=== PATIENT | female | born 1980 | race Caucasian/White ===

== ENCOUNTER → 2016-05-09 | Outpatient (CLI) | payer BC ==
[~2016-05-09] MED LIST: ACET-1256 PO; OXYC-57 PO; PRENTAB26 PO
[2016-05-09 15:54] LABS: HEMATOCRIT 34.6 % (37-47)
[2016-05-09 18:14] LABS: GTGD 50 Grams
== END | disposition home or self-care (01) ==
LOC: C.LAB1850 14:17
PROVIDERS: ATTEND Obstetrics & Gynecology
DX: O09.513 Supervision of elderly primigravida, third trimester (principal)

== ENCOUNTER → 2016-05-09 | Outpatient (CLI) | payer BC ==
[2016-05-09 17:35] LABS: URINE APPEARANCE CLEAR (CLEAR); URINE BILIRUBIN NEG (NEG); URINE COLOR YELLOW; URINE EPITHELIAL CELL AUTO >30 /lpf (0-5); URINE NITRITE NEG (NEG); URINE PH 6.5 (4.5-7.5); URINE SPECIFIC GRAVITY 1.003 (1.000-1.030); UROBILINOGEN NEG (NEG)
[2016-05-09 17:39] LABS: MANUAL MICROSCOPIC REQUIRED? NO; REVIEW REQ? NO
== END | disposition home or self-care (01) ==
LOC: C.LABSPEC 16:47
PROVIDERS: ATTEND Obstetrics & Gynecology
DX: O09.513 Supervision of elderly primigravida, third trimester (principal)

== ENCOUNTER 2016-08-01 05:33 | Inpatient (IN) | payer BC ==
[2016-07-31 11:59] LABS: BASO % 0.3 %; BASO ABS # 0.03 K/uL (0-0.2); COMPLETE YES; EOS % 1.1 %; HEMATOCRIT 39.1 % (37-47); IG% 0.2 %; LYMPH % 13.7 %; LYMPH ABS # 1.35 K/uL (1.2-3.4); MEAN CELL VOLUME 89.5 fL (80-100); MEAN CORPUSCULAR HGB CONC 33.5 g/dl (32-36); MONO % 6.3 %; NEUT % 78.4 %; PLATELET COUNT 212 K/uL (130-400); RED BLOOD COUNT 4.37 M/uL (4.2-5.4); WHITE BLOOD COUNT 9.88 K/uL (4.8-10.8)
--- NOTE | 2016-07-31 12:08 | HISTORY & PHYSICAL EXAMINATION ---
DATE OF ADMISSION: 08/01/2016 PREOPERATIVE HISTORY AND PHYSICAL ADMITTING DIAGNOSES: 1. Complicated at 39+ weeks gestational age. 2. Unstageable lie. 3. Advanced maternal age. ADMISSION HISTORY: The patient is a 35-year-old 4, para 0 with an EDC of 04 August by dates and first trimester ultrasound who is admitted for primary section for an unstable lie. The patient was noted to be initially in a breech presentation at approximately 36 weeks' gestational age, this spontaneously converted to what was felt to be a vertex, but on ultrasound, the vertex was actually in the right lower quadrant. On pelvic examination, the fetus was not in the pelvis. The risks and benefits were discussed and the patient has been admitted for the above-listed procedures. The patient otherwise has had an unremarkable course. Her blood type is O positive, antibody negative, rubella immune, hepatitis B negative. She had a positive group B strep urine. She had a negative [id number] for advanced maternal age a negative maternal serum AFP, normal 1 hour Glucola x2. PAST MEDICAL HISTORY: OBSTETRICAL: As above. GYNECOLOGICAL: Habitual Aborter MEDICAL: Reactive airways disease, dysmetabolic syndrome. SURGICAL: Left breast biopsy. ALLERGIES: No known drug allergies. SOCIAL HISTORY: No smoking. FAMILY HISTORY: Noncontributory. REVIEW OF SYSTEMS: As per HPI. PHYSICAL EXAMINATION: GENERAL: Today shows a gravid female in no acute distress. VITAL SIGNS: Her blood pressure 130/80, height of 5 feet 5 inches and weight of 171 pounds. HEENT EXAMINATION: Unremarkable. NECK: Supple. LUNGS: Clear. HEART: With a regular rhythm and rate. ABDOMEN: Gravid with positive heart tones, estimated weight of 8 pounds. PELVIC: Showed the cervix to be long, thick and closed with no presenting part in the pelvis. EXTREMITIES: Medication shows +1 edema. NEUROLOGIC: Grossly intact. IMPRESSION: A 35-year-old 4, para 0, 39+ weeks gestational age, unstable lie for primary section. PLAN: Risks, benefits and alternatives to the surgery have been discussed. The benefits will be delivery of the , the risks are bleeding, infection, inadvertent injury to bowel, bladder, readmission or rehospitalization or reoperation. The patient understands this. Permit has been signed and she wishes to proceed. WILLIS
[2016-08-01] VITALS (11 sets, daily range): BP systolic 106–117; BP diastolic 68–69; PULSE 88–111; TEMP 36.7–36.9; O2SAT 98–99; Ht 152.4 cm; Wt 89.1 kg
[~2016-08-01] VITALS: Ht 152.4 cm; Wt 89.1 kg
[~2016-08-01 05:33] MED LIST changes: -OXYC-57 PO
[2016-08-01] MEDS ORDERED: CITRIC ACID/SODIUM CITRATE 15 ML UDC PO SCH (06:00)
[2016-08-01] MEDS ORDERED: CEFAZOLIN IV 2,000 MG in DEXTROSE 5% 50ML IV SCH (06:00)
[2016-08-01] MEDS ORDERED: LACTATED RINGER'S 1000ML 1,000 ML IV SCH (06:00)
[2016-08-01 06:44] LABS: BASO % 0.2 %; BASO ABS # 0.02 K/uL (0-0.2); COMPLETE YES; EOS % 1.6 %; HEMATOCRIT 38.2 % (37-47); IG% 0.3 %; LYMPH % 17.8 %; LYMPH ABS # 1.53 K/uL (1.2-3.4); MEAN CELL VOLUME 88.6 fL (80-100); MEAN CORPUSCULAR HGB CONC 32.7 g/dl (32-36); MEAN PLATELET VOLUME 11.5 fL (7.4-10.4); MONO % 6.3 %; NEUT % 73.8 %; PLATELET COUNT 206 K/uL (130-400); RED BLOOD COUNT 4.31 M/uL (4.2-5.4)
[2016-08-01] MEDS ORDERED: OXYTOCIN INJ 10 UNITS/ML VIAL ONE (06:53)
[2016-08-01] MEDS ORDERED: ONDANSETRON INJ 2 MG/ML 2 ML VIAL ONE (06:53)
[2016-08-01] MEDS ORDERED: MoRPHine SULFATE PF 1 MG/ML 10 ML AMP/VIAL ONE (06:54)
[2016-08-01] MEDS ORDERED: FENTANYL CITRATE INJ 50 MCG/1 ML 2 ML VIAL ONE (06:54)
--- NOTE | 2016-08-01 07:25 | History & Physical Bridge Note ---
H&P Re-Evaluation Bridge Note: I have examined the patient, reviewed the History & Physical and in the interval since the performance of the History & Physical I have noted the following changes of clinical significance: No changes noted
[2016-08-01] MEDS ORDERED: EpHEDrine SULFATE INJ 50 MG/ML AMP ONE (08:25)
[2016-08-01] MEDS ORDERED: SODIUM CHLORIDE 0.9% 1000ML 1,000 ML IV PRN (08:44)
[2016-08-01] MEDS ORDERED: NALOXONE HCL INJ 0.08 MG in SYRINGE 1.8 ML IV PRN (08:44)
[2016-08-01] MEDS ORDERED: LACTATED RINGER'S 1000ML 500 ML IV PRN (08:44)
[2016-08-01] MEDS ORDERED: HYDROCORTISONE ACETATE 25 MG SUPP PR PRN (08:45)
[2016-08-01] MEDS ORDERED: EpHEDrine SULFATE INJ 50 MG/ML AMP IV PRN (08:45)
[2016-08-01] MEDS ORDERED: MoRPHine SULFATE 2 MG/ML CARP IV PRN (08:45)
[2016-08-01] MEDS ORDERED: PROMETHAZINE HCL INJ 25 MG in SODIUM CHLORIDE 0.9% 50ML 50 ML IV PRN (08:45)
[2016-08-01] MEDS ORDERED: MEPERIDINE HCL 25 MG/ML CARP IV PRN (08:45)
[2016-08-01] MEDS ORDERED: DiphenhydrAMINE HCL 50 MG/ML VIAL IV PRN (08:45)
[2016-08-01] MEDS ORDERED: NO NARCOTICS OR SEDATIVES SCH (08:45)
[2016-08-01] MEDS ORDERED: SUPERCREAM 0.870 % 15GM JAR EXT PRN (08:45)
[2016-08-01] MEDS ORDERED: BENZOCAINE 20% AER SPR 82.5 GM CAN EXT PRN (08:45)
[2016-08-01] MEDS ORDERED: LANOLIN OINT EXT PRN ×2 (08:45)
[2016-08-01] MEDS ORDERED: NALBUPHINE HCL INJ 10 MG/ML AMP IV PRN (08:45)
[2016-08-01] MEDS ORDERED: NALOXONE HCL 0.4 MG/1 ML VIAL/CARP IV PRN (08:45)
[2016-08-01] MEDS ORDERED: ONDANSETRON INJ 2 MG/ML 2 ML VIAL IV PRN (08:45)
[2016-08-01] MEDS ORDERED: MoRPHine SULFATE PF 1 MG/ML 10 ML AMP/VIAL EPI PRN (08:45)
--- NOTE | 2016-08-01 08:45 | [facility] Post Operative Brief Note ---
Immediate Operative Summary Operative Date August 01, 2016. Pre-Operative Diagnosis 1. Term IUP 2. Unstable Lie Post-Operative Diagnosis Same Procedure(s) Performed Primary lower uterine transverse caesarean section for the of a viable female child at 0804. Surgeon Dr. Butcher Principal Consultant Surgeon(s) Dr. Julian Estimated Blood Loss 800cc Findings viable female, Apgars 8/9 weight of 6lbs 11ozs; vtx in RLQ at delivery, NC x1; gasses pending, nml appearing tubes and ovaries bilaterally Fluids (cc crystalloids) 1500 Specimens 1. Placenta: Hold 2. Cord blood obtained 3. Venous and Arterial Cord Gases obtained Drains Randolph to gravity Anesthesia Spinal Complication(s) None Disposition L&D
--- NOTE | 2016-08-01 08:46 | Anesthesiology Progress Note ---
Anesthesia Post Op Note Date & Time August 01, 2016 at 08:45 Notes Mental Status: alert / awake / arousable, participated in evaluation Pt Amnestic to Procedure: No (recall as expected) Nausea / Vomiting: adequately controlled Pain: adequately controlled Airway Patency, RR, SpO2: stable & adequate BP & HR: stable & adequate Hydration State: stable & adequate Neuraxial Anesthesia: was administered, sensory block is resolving Anesthetic Complications: no major complications apparent Pt had C/S for unstable lie under spinal. Her anesthetic course was unremarkable. I asked the pt's nurse to given another 500-1000 mL LR to replace the EBL. Post-op vitals: BP 137/68, HR 69, RR 20, SpO2 98% on RA, T 36.4.
--- NOTE | 2016-08-01 08:56 | OPERATIVE REPORT ---
DATE OF OPERATION: 08/01/2016 PREOPERATIVE DIAGNOSES: 1. Term . 2. Unstable lie. POSTOPERATIVE DIAGNOSES: Same. PROCEDURE PERFORMED: Primary low cervical transverse section. SURGEON: Dr. Butcher. SENIOR LINUX SYSTEMS ENGINEER: Dr. Janine Julian. ANESTHESIA: Spinal. FINDINGS: Viable female infant with Apgars of 8 and 9 and weight of 6 pounds 11 ounces, nuchal cord x1. Arterial and venous cord gases are pending. Several small seedling fibroids noted on the uterus. Normal appearing tubes and ovaries bilaterally. PROCEDURE IN DETAIL: The patient was taken to the operating room, and after spinal anesthesia, was placed in supine position and draped and prepped in the usual fashion. Pfannenstiel type incision was made. Underlying subcutaneous tissue was dissected down to the ventral abdominal fascia which was nicked and opened in a horizontal manner. Preperitoneal fascia was dissected away until the peritoneal cavity was entered and opened in a vertical manner. Bladder blade was placed. The uterus was entered sharply and extended in a semilunar fashion manually. Artificial rupture of membranes for clear fluid. The vertex was in the right lower quadrant, and with fundal pressure, this brought the head into the pelvis. Baby was delivered. Nuchal cord x1 was reduced. The cord was clamped and cut, and the baby was passed off to pediatrics who was in attendance for the delivery. Cord gases, cord blood samples obtained. Placenta was delivered spontaneously and the uterus was exteriorized. The uterine cavity was wiped clean of any residual tissue and/or clot. The uterine incision was then closed with 2 layers of 4-0 Vicryl, the first a running locking stitch, the second an imbricating stitch. Hemostasis was achieved and the uterus was returned to the pelvic cavity. The pericolic gutters were cleared bilaterally of any blood tissue and/or clot. Uterine incision was inspected for hemostasis again, which was present. The sponge and needle count was correct. Rectus muscle was plicated in the midline with a running 2-0 Vicryl suture. The fascia was closed laterally with a running 0 Vicryl suture. The subcutaneous tissue was irrigated with warm saline and the skin incision was closed with a 4-0 Monocryl subcuticular stitch. Sterile dressing was applied and the patient was taken to the recovery room in satisfactory condition. I attest to the content of the Intraoperative Record and any orders documented therein. Any exceptio ns are noted below.
[2016-08-01] MEDS: OXYTOCIN INJ 20 UNITS in LACTATED RINGER'S 1000ML 1,000 ML IV SCH ×2 (09:40→18:21)
[2016-08-01] MEDS: KETOROLAC TROMETHAMINE 30 MG/ML VIAL IV. PRN ×2 (11:13→20:33)
[2016-08-02] VITALS: O2SAT 99
[2016-08-02 01:00] VITALS: O2SAT 97
[2016-08-02 02:00] VITALS: O2SAT 100
[2016-08-02] MEDS ORDERED: DC INTRASPINAL MORPHINE SCH (02:00)
[2016-08-02] MEDS ORDERED: ONDANSETRON INJ 2 MG/ML 2 ML VIAL IV PRN (02:01)
[2016-08-02] MEDS ORDERED: DiphenhydrAMINE HCL 50 MG/ML VIAL IV PRN (02:01)
[2016-08-02] MEDS ORDERED: KETOROLAC TROMETHAMINE 30 MG/ML VIAL IV. PRN (02:01)
[2016-08-02] MEDS ORDERED: OXYCODONE/ACETAMINOPHEN 5-325 TAB PO PRN (02:01)
[2016-08-02 06:29] LABS: HEMATOCRIT 33.8 % (37-47); MEAN CELL VOLUME 88.3 fL (80-100); MEAN CORPUSCULAR HEMOGLOBIN 28.7 pg (25-34); MEAN CORPUSCULAR HGB CONC 32.5 g/dl (32-36); MEAN PLATELET VOLUME 11.2 fL (7.4-10.4); PLATELET COUNT 202 K/uL (130-400); RED BLOOD COUNT 3.83 M/uL (4.2-5.4); WHITE BLOOD COUNT 18.17 K/uL (4.8-10.8)
[2016-08-02 07:08] LABS: BASO % 0.1 %; BASO ABS # 0.02 K/uL (0-0.2); COMPLETE YES; EOS % 0.7 %; IG% 0.3 %; LYMPH % 7.4 %; LYMPH ABS # 1.34 K/uL (1.2-3.4); NEUT % 88.5 %
--- NOTE | 2016-08-02 07:13 | Progress Note ---
Subjective August 02, 2016. Subjective conversation w/ patient, conversation w/ family Voiding: long catheter in place Feeding Type: Breast Feeding Objective Vital Signs Date Time Temp Pulse Resp B/P Pulse Ox O2 Delivery O2 Flow Rate FiO2 08/02/16 02:00 18 100 08/02/16 01:00 16 97 08/02/16 00:00 18 99 08/01/16 23:30 99 Room Air 08/01/16 23:00 18 99 08/01/16 22:00 18 99 08/01/16 21:00 20 99 08/01/16 20:00 20 99 08/01/16 19:30 36.7 111 20 106/69 Room Air 08/01/16 19:00 20 99 08/01/16 18:00 19 98 08/01/16 17:00 20 99 08/01/16 16:00 18 99 08/01/16 15:15 Room Air 08/01/16 15:15 36.9 88 20 117/68 99 Room Air 08/01/16 15:15 20 99 08/01/16 15:15 99 Room Air 08/01/16 15:15 20 99 Physical Exam General Appearance: WELL-APPEARING, NO APPARENT DISTRESS Respiratory/Chest: lungs clear Cardiovascular: regular rate, rhythm Incision Description: Clean, Dry & Intact Extremities: no calf tenderness Laboratory Results Last 24 Hours Test 08/02/16 06:09 White Blood Count 18.17 K/uL Red Blood Count 3.83 M/uL Hemoglobin 11.0 g/dL Hematocrit 33.8 % Mean Corpuscular Volume 88.3 fL Mean Corpuscular Hemoglobin 28.7 pg Mean Corpuscular Hemoglobin Concent 32.5 g/dl Platelet Count 202 K/uL Mean Platelet Volume 11.2 fL Neutrophils (%) (Auto) 88.5 % Lymphocytes (%) (Auto) 7.4 % Monocytes (%) (Auto) 3.0 % Eosinophils (%) (Auto) 0.7 % Basophils (%) (Auto) 0.1 % Neutrophils # (Auto) 16.08 K/uL Lymphocytes # (Auto) 1.34 K/uL Monocytes # (Auto) 0.55 K/uL Eosinophils # (Auto) 0.13 K/uL Basophils # (Auto) 0.02 K/uL RDW Standard Deviation 43.1 fL RDW Coefficient of Variation 13.4 % Immature Granulocyte % (Auto) 0.3 % Immature Granulocyte # (Auto) 0.05 K/uL Red Blood Cell Morphology Unremarkable Assessment and Plan Problem List Medical Problems: (1) Influenza B Status: Acute (2) Status: Acute Post-Op Day#: 1 Continue Routine Care: - discussed surgery and finding - begin ambulation - routine care - doing well
[2016-08-02 08:00] VITALS: BP 115/74; PULSE 98; TEMP 36.6
[2016-08-02] MEDS: FERROUS SULFATE 325 MG TAB PO SCH (08:07)
[2016-08-02] MEDS: PRENATAL VITAMIN TAB PO SCH (08:07)
[2016-08-02] MEDS: IBUPROFEN 600 MG TAB PO PRN ×4 (08:08→23:32)
[2016-08-02] MEDS: OXYCODONE/ACETAMINOPHEN 5-325 TAB PO PRN ×3 (08:08→19:17)
[2016-08-02 16:45] VITALS: BP 127/74; PULSE 95; TEMP 36.9; O2SAT 98
[2016-08-02] MEDS: MAGNESIUM HYDROXIDE SUSP 30 ML UDC PO SCH (22:30)
[2016-08-02] MEDS: SENNA 8.6 MG TAB PO SCH (22:31)
[2016-08-02 23:40] VITALS: BP 120/79; PULSE 70; TEMP 36.4; O2SAT 98
[2016-08-03 06:56] LABS: HEMATOCRIT 30.4 % (37-47)
[2016-08-03 07:05] VITALS: BP 126/82; PULSE 79; TEMP 36.5; O2SAT 98
[2016-08-03] MEDS: PRENATAL VITAMIN TAB PO SCH (07:44)
[2016-08-03] MEDS: FERROUS SULFATE 325 MG TAB PO SCH (07:44)
[2016-08-03] MEDS: IBUPROFEN 600 MG TAB PO PRN ×3 (07:50→15:56)
--- NOTE | 2016-08-03 08:36 | Progress Note ---
Subjective August 03, 2016. Subjective conversation w/ patient, physical exam Ambulation: ambulating normally Voiding: no voiding problems, long catheter in place Passing Gas: Yes Diet Tolerance: Regular Diet Lochia: Moderate Feeding Type: Breast Feeding Review of Systems Constitutional: No problem reported Respiratory: No problem reported Cardiac: No problem reported Breast: No problem reported Abdomen: No problem reported Female : No problem reported Objective Vital Signs Date Time Temp Pulse Resp B/P Pulse Ox O2 Delivery O2 Flow Rate FiO2 08/03/16 07:05 36.5 79 18 126/82 98 Room Air 08/02/16 23:40 36.4 70 20 120/79 98 Room Air 08/02/16 23:40 98 08/02/16 16:45 98 Room Air 08/02/16 16:45 36.9 95 18 127/74 98 Room Air Physical Exam General Appearance: WELL-APPEARING, NO APPARENT DISTRESS Respiratory/Chest: no respiratory distress Cardiovascular: regular rate, rhythm Abdomen: non tender, soft Fundus: Firm Incision Description: Clean, Dry & Intact Extremities: normal inspection Laboratory Results Last 24 Hours Test 08/03/16 06:16 Hemoglobin 10.1 g/dL Hematocrit 30.4 % Assessment and Plan Problem List Medical Problems: (1) Influenza B Status: Acute (2) Status: Acute Post-Op Day#: 2 Continue Routine Care: POD#2 doing well. Continue ambulating, PO fluids. Anticipate discharge home tomorrow.
[2016-08-03 15:30] VITALS: BP 115/75; PULSE 89; TEMP 36.6
[2016-08-03] MEDS ORDERED: NURSING VERBAL MED ORDER ONE (18:00)
[2016-08-03] MEDS: ACETAMINOPHEN 325 MG TAB PO PRN (18:11)
[2016-08-04] VITALS: BP 110/72; PULSE 87; TEMP 36.5
[2016-08-04] MEDS: SENNA 8.6 MG TAB PO SCH (01:29)
[2016-08-04] MEDS: MAGNESIUM HYDROXIDE SUSP 30 ML UDC PO SCH (01:30)
[2016-08-04 06:55] VITALS: BP 131/85; PULSE 83; TEMP 36.7; O2SAT 98
[2016-08-04] MEDS ORDERED: OXYC-57 PO (07:29)
--- NOTE | 2016-08-04 07:29 | Progress Note ---
Subjective August 04, 2016. Subjective conversation w/ patient, physical exam, chart review Ambulation: ambulating normally Voiding: no voiding problems Passing Gas: Yes Diet Tolerance: Regular Diet Lochia: Moderate Review of Systems Constitutional: No chills, No fever Respiratory: No cough Cardiac: No chest pain Abdomen: No nausea, No vomiting Objective Vital Signs Date Time Temp Pulse Resp B/P Pulse Ox O2 Delivery O2 Flow Rate FiO2 08/04/16 00:00 36.5 87 18 110/72 Room Air 08/04/16 00:00 Room Air 08/03/16 15:30 36.6 89 20 115/75 Physical Exam General Appearance: WELL-APPEARING, NO APPARENT DISTRESS Respiratory/Chest: no respiratory distress, no accessory muscle use Cardiovascular: no edema Abdomen: non tender, soft Fundus: Firm Incision Description: Clean, Dry & Intact Extremities: no calf tenderness Assessment and Plan Problem List Medical Problems: (1) Influenza B Status: Acute (2) Status: Acute Post-Op Day#: 3 Continue Routine Care: POD#3 , desires d/c home today. INstructions reviewed.
--- NOTE | 2016-08-04 07:30 | Discharge Instructions ---
Discharge Instructions Date of Service August 04, 2016. Admission Reason for Admission: Breech Presentation Discharge Discharge Diagnosis / Problem: delivery Discharge Goals Goal(s): Routine recovery after Activity Recommendations Activity Limitations: per Instructions/Follow-up section . Instructions / Follow-Up Instructions / Follow-Up ACTIVITY RECOMMENDATIONS: * Gradual return to full activity over the next 2-3 weeks. * No lifting - nothing heavier than baby over the next 2-3 weeks. * Do not engage in vigorous exercise, sexual activity or sports until cleared by your physician. * Do not drive or operate any motorized equipment until cleared by your physician. * You may shower/bathe daily. MEDICATIONS: For discomfort or pain, you may use Acetaminophen (Tylenol), Ibuprofen (Advil), or Naproxen (Aleve) following the package directions. For constipation you may use Colace following the package directions. BREAST CARE: If you are not breast feeding: * Wear a supportive bra 24 hours a day for one to two weeks. * Avoid stimulating your breasts and nipples as much as possible during the first few weeks after delivery. * When taking a shower, have the warm water hit your back, not breasts. * When your breasts feel full, apply ice packs. Usually three to four times a day helps ease the discomfort. * Take a mild pain medication (Tylenol / Motrin) when you are uncomfortable. If breast feeding: * Use breast milk to lubricate nipples. Lansinoh cream may be used for sore nipples. You do not need to remove cream prior to breast feeding. If using a different brand of cream, check the label for directions regarding removal of cream prior to nursing. * Wear a supportive bra. * If having problems with breasts or breast feeding, call a bmw sales consultant or your health care provider. SPECIAL CARE INSTRUCTIONS: When you are discharged from the hospital, it is important for you to follow the instructions listed below: * During the first week at home, you should be able to care for yourself and your baby. In addition, the usual light household activities are encouraged. * Limit your activities to the way you feel. Do not try to clean the house or move furniture. Be sensible. * If you actively engage in sports and have done so up until the time of your delivery, you may resume these activities as soon as you feel able. This may take up to one month or even longer. Use good judgment. * Continue to take your vitamins for at least six weeks after the of your baby. * Your diet need not be limited unless you were on a special diet before your delivery. Breast-feeding mothers need around 2500 calories per day and at least 64-80 ounces of fluid per day (8 to 10 glasses). * You should eat foods from the four major food groups. Crash diets or fad diets are to be avoided. Eating lean meats, fresh fruits and vegetables, low-fat dairy products, high fiber foods and a regular exercise program, will help you get back to your pre- weight without putting your health at risk. * Constipation is sometimes a problem after delivery. Take a mild laxative as needed. If breast feeding, Milk of Magnesia is acceptable to use. You may use a suppository or Fleets enema. * A daily shower or tub bath is suggested. Wash incision daily with warm soapy water and pat dry. It doesn't need to be covered unless drainage is present. * A bloody vaginal discharge will usually continue until around four weeks . A small amount of bleeding may continue for as long as six weeks. Vaginal discharge changes from the bright red bleeding after delivery to pink then brownish and finally yellowish-pink before becoming white and disappearing. * Bleeding may increase with activity. Your first period may come in 4-8 weeks. If you are breast feeding, your period may be delayed even longer. * [place] (sex) can begin whenever both you and your partner feel comfortable and do not have any form of genital infection. It is recommended that you wait at least six weeks for internal and external healing to occur. If you have questions, please talk to your health care practitioner. A condom should be used to prevent infection and . * Foreplay, gentle intercourse and lubrication is very important the first several times to prevent pain. A water-based lubricant such as K-Y jelly or Astroglide may be used. * If you have RH negative blood and your baby is RH positive, you will receive RHOGAM by injection prior to discharge. The nurse will give you a card to keep with you that has the date and place that you received RHOGAM after delivery. * During your care, you had a Rubella screen done to check for the presence of rubella antibodies in your blood. If your test was negative, you will receive a Rubella vaccine prior to discharge. This vaccine may cause a fever, soreness at the injection site and flu-like symptoms. If these symptoms persist, notify your health care practitioner. is not advised for one month after a Rubella vaccine. * Verbalizes understanding of car seat law as reviewed with patient nursing. * Car Seat hand-out given and reviewed with patient by nursing. * Shaken baby information reviewed with patient by nursing. Call you doctor if: * Heavy bleeding (saturating several pads an hour) or passing clots the size of your fist. * A fever >101 degrees F (38.3 degrees C) on two occasions four hours apart and /or chills. * Unusual pain in the pelvic or vaginal areas. * Call the doctor for any increased redness, drainage or swelling around the incision and any pain unrelieved by prescribed pain medication. * "Baby Blues" lasting longer than two weeks. If you have any questions or concerns, call your health care practitioner at . FOLLOW UP VISIT: * Please call the office at to schedule a 6 week examination. It is important you keep this appointment. It is important for you to make arrangements for either yearly or twice yearly check-ups thereafter. Current Hospital Diet Patient's current hospital diet: Regular OB Diet Discharge Diet Recommended Diet: Regular Diet Procedures Procedures Performed: Primary lower uterine transverse caesarean section for the of a viable female child at 0804. Pending Studies Studies pending at discharge: no Medical Emergencies . Who to Call and When: Medical Emergencies: If at any time you feel your situation is an emergency, please call [phone] immediately. . Non-Emergent Contact Non-Emergency issues call your: Primary Care Provider . . "Provider Documentation" section prepared by Deann Hanna. . VTE Core Measure Inpt VTE Proph given/why not?: Treatment not indicated [place] Drug Monitoring Program Search Results: patient reviewed within database, no issues identified
[2016-08-04] MEDS: ACETAMINOPHEN 325 MG TAB PO PRN (08:06)
[2016-08-04] MEDS: IBUPROFEN 600 MG TAB PO PRN (08:06)
[2016-08-04] MEDS: FERROUS SULFATE 325 MG TAB PO SCH (08:06)
[2016-08-04] MEDS: PRENATAL VITAMIN TAB PO SCH (08:06)
[2016-08-04 13:00] VITALS: BP_DIAS 85; PULSE 83; TEMP 36.7
--- NOTE | 2016-08-04 13:06 | DISCHARGE SUMMARY ---
ADMITTING DIAGNOSES: 1. Complicated at 39+ weeks' gestational age. 2. Unstable lie. 3. Advanced maternal age. DISCHARGE DIAGNOSES: Same. PROCEDURES PERFORMED: Primary low cervical transverse section. DISCHARGE MEDICATIONS: Percocet 5/325 1-2 p.o. q. 4-6 hours p.r.n. pain. ADMISSION HISTORY: The patient is a 35-year-old 4, para 0 with an EDC of 04 August by dates and first trimester ultrasound who is admitted for a primary section for an unstable lie. The patient was initially noted to be in a breech presentation at approximately 36 weeks' gestational age, this spontaneously converted to what was felt to be a vertex, on ultrasound, the vertex was actually in the right lower quadrant. On pelvic examination, the fetus was not in the pelvis. The risks and benefits were discussed and the patient has been admitted for the above-listed procedures. The patient otherwise had an unremarkable course. Her blood type is O positive, antibody negative, rubella immune, hepatitis B negative. She had a positive group B strep in her urine. She had a negative [id number] for advanced maternal age, a negative maternal serum AFP, and normal 1-hour Glucola x2. PAST MEDICAL HISTORY: OBSTETRICAL: As above. 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 MEDICAL: 1. Reactive airways disease. 2. Dysmetabolic syndrome. SURGICAL: Left breast biopsy. ALLERGIES: No known drug allergies. SOCIAL HISTORY: No smoking. FAMILY HISTORY: Noncontributory. REVIEW OF SYSTEMS: As per HPI. PHYSICAL EXAMINATION: GENERAL: Showed a gravid female in no acute distress. VITAL SIGNS: Blood pressure 130/80, height of 5 feet 5 inches, and a weight 171 pounds. HEENT: Unremarkable. NECK: Supple. LUNGS: Clear. HEART: With a regular rhythm and rate. ABDOMEN: Gravid, positive heart tones, estimated weight of 8 pounds. PELVIC: Showed the cervix to be long, thick and closed with no presenting part in the pelvis. EXTREMITIES: Showed +1 pitting edema. NEUROLOGIC: Grossly intact. ADMISSION LABORATORY VALUES: Showed an H and H of 12.5 and 38.2. HOSPITAL COURSE: On day of admission, the patient was taken to the operating room where she underwent the above-listed procedures. Operative findings showed a viable female with Apgars of 8 and 9 and weight of 6 pounds 11 ounces, nuchal cord x1. Several small seedling fibroids were noted on the uterus, normal-appearing tubes and ovaries bilaterally. Postoperatively, the patient did well. Randolph catheter was removed on the first postoperative day. H and H came back stable at 11.0 and 33.8. By the 3rd postoperative day, the patient was ambulating without difficulty and tolerating a regular diet. She was discharged home with the routine discharge instructions and the prescriptions for the medications as listed above. She will follow up in the office in 2 weeks' time for a postoperative check but as always, she has been instructed to call with any questions, problems or difficulties.
== END 2016-08-04 13:25 | disposition home or self-care (01) | DRG 765 ==
LOC: C.LD 05:33 → EDSTATUS 07:30 → C.OBG 15:15
PROVIDERS: ADMIT Obstetrics & Gynecology; ATTEND Obstetrics & Gynecology
PROC: 10D00Z1 Extraction of Products of Conception, Low, Open Approach (ICD-10-PCS; principal; 2016-08-01 07:30)
DX: O32.0XX0 Maternal care for unstable lie, not applicable or unspecified (principal); O26.23 Pregnancy care for patient with recurrent pregnancy loss, third trimester; O69.81X0 Labor and delivery complicated by cord around neck, without compression, not applicable or unspecified; O99.52 Diseases of the respiratory system complicating childbirth; J45.909 Unspecified asthma, uncomplicated; O99.284 Endocrine, nutritional and metabolic diseases complicating childbirth; E88.81 Metabolic syndrome and other insulin resistance; O34.13 Maternal care for benign tumor of corpus uteri, third trimester; D25.9 Leiomyoma of uterus, unspecified; Z37.0 Single live birth; Z3A.39 39 weeks gestation of pregnancy

== ENCOUNTER 2020-01-31 05:37 | Inpatient (IN) ==
--- NOTE | 2020-01-30 18:50 | History & Physical Report ---
Date of Service January 30, 2020 Assessment & Plan (1) Supervision of elderly multigravida: (2) Previous delivery affecting : Plan for repeat section, tubal sterilization with Filshie clips. Patient has been counseled in office, reviewed consent in detail. History of Present Illness Chief Complaint: repeat Primary Care Provider: Ellen Bryant MD 39yo @ 39 06/21. History of section, desires repeat with tubal sterilization. complications/plans: AMA >40 Anatomy Scan @ 20 weeks Echo ~done at [facility] [place] 09/28/2019, recommended repeat in 4wks for ? VSD - f/u echo nl, no further f/u Growth scan @ 32 weeks Weekly NST's @ 36 weeks Twice weekly NST's @ 38 weeks Weekly NATALIE's @ 38 weeks Deliver by 41 weeks Fibroid- growth US monthly starting @ 28 wks fibroid not seen on 28 week us, likely a uterine contraction Previous c/s--desires repeat C/S WITH TUBAL SCHEDULED FOR 01/[address] DUDLEY Allergies Allergy/AdvReac Type Severity Reaction Status Date / Time No Known Drug Allergies Allergy Verified 01/27/20 10:31 Home Medications Home Medications Medication Instructions Recorded Confirmed Type prenat.vits,radha,ntw-tutt-bkegy 1 tab PO DAILY 06/21/19 01/27/20 History Patient History Medical History Acid reflux induced; Tums PRN Asthma "cold induced" - rare use of PRN inh History of TMJ disorder Surgical History History of section History of D&C History of lumpectomy of left breast History of tonsillectomy and adenoidectomy History of wisdom tooth extraction Status post fine needle aspiration left Family History Grandmother (Paternal) Myocardial infarction Breast cancer Grandfather (Maternal) Coronary heart disease Father Cerebral infarction due to embolism Sarcoma of soft tissue Dyslipidemia Hypertension Mother Parkinsons disease Grandfather (Paternal) Heart disease Denies family history of Ovarian cancer Colorectal cancer Social History (Reviewed 11/15/20 @ 18:48 by Marichuy Dudley, JOSEPHINE Smoking Status: Never smoker Second Hand Exposure: No; Hx Alcohol Use: No Hx Substance Use: No Preferred Language: Chinese Communication Ability: Effective Commissioner Of Internal Revenue Required: No Beliefs That Will Affect Care: None marital status: marital status details: Flako Fajardo (45) [phone] Current Living Situation: Spouse and Family Current Living Situation Comment: lives with spouse, daughter, cats-spouse changing litter current occupational status: employed current occupation: [employer] Feels Safe at Home: Yes Assistive Devices: Contacts and Glasses Review of Systems All systems reviewed & are unremarkable except as noted in HPI & below Physical Exam Constitutional: WD/WN, vitals as above Respiratory: normal respiratory effort, lungs clear to auscultation no respiratory distress Cardiovascular: Rate/Rhythm: regular rate and regular rhythm Gastrointestinal (Abdomen): Inspection/Auscultation: abdomen normal to inspection Percussion/Palpation: abdomen soft; abdomen nontender Gravid. No s/s chorio or abruption. Skin: no rashes, warm and dry Psychiatric: A+Ox3, euthymic affect Coding Level of Care Code None Diagnoses Supervision of elderly multigravida O09.529 Previous delivery affecting O34.219
[2020-01-31] MEDS ORDERED: ceFAZolin 2,000 MG in SYRINGE 0 ML IV SCH (06:00)
[2020-01-31] MEDS ORDERED: CITRIC ACID/SODIUM CITRATE 15 ML UDC PO SCH (06:00)
[2020-01-31] MEDS ORDERED: LACTATED RINGER'S 1,000 ML IV SCH ×2 (06:00→10:40)
[2020-01-31 06:22] LABS: Basophils # (auto) 0.02 K/uL (0-0.2); Basophils % (auto) 0.2 %; Hematocrit (blood only) 39.4 % (37-47); Hemoglobin 13.2 g/dL (12.0-16.0); Immature Granulocytes # (auto) 0.03 K/uL (0.00-0.02); Immature Granulocytes % (auto) 0.3 %; Lymphocytes % (auto) 18.2 %; Mean Corpuscular Hemoglobin 29.5 pg (25-34); Mean Corpuscular Hgb Conc 33.5 g/dL (32-36); Mean Corpuscular Volume 88.1 fL (80-100); Mean Platelet Volume 11.7 fL (7.4-10.4); Monocytes # (auto) 0.79 K/uL (0.11-0.59); Neutrophils # (auto) 7.04 K/uL (1.4-6.5); Neutrophils % (auto) 71.3 %; Platelet Count 216 K/uL (130-400); RDW Coefficient of Variation 14.1 % (11.5-14.5); RDW Standard Deviation 45.6 fL (36.4-46.3); Red Blood Count 4.47 M/uL (4.2-5.4); White Blood Count 9.88 K/uL (4.8-10.8)
--- NOTE | 2020-01-31 07:16 | History & Physical Bridge Note ---
Date of Service January 31, 2020 History & Physical Bridge Note I have examined the patient, reviewed the History & Physical and in the interval since the performance of the History & Physical I have noted the following changes of clinical significance: no changes noted
[2020-01-31] MEDS ORDERED: MoRPHine SULFATE PF 1 MG/ML 10 ML AMP/VIAL ONE (07:20)
--- NOTE | 2020-01-31 07:23 | Anesthesiology Consultation ---
Date of Service January 31, 2020 Assessment & Plan (1) Encounter for pre-operative examination: Chart Review Chart Review: Acceptable Risk for Surgery History Surgery Operation Date: 01/31/20 07:30 Proposed Procedures p Section in LD - Marichuy Dudley DO s Post Tubal Ligation Labor & Deliv - Marichuy Dudley DO Height/Weight Height: 5 ft Weight: 95.254 kg Allergies Allergy/AdvReac Type Severity Reaction Status Date / Time No Known Drug Allergies Allergy Verified 01/27/20 10:31 Medications Home Medications Medication Instructions Recorded Confirmed Last Taken prenat.vits,radha,qeo-odvz-jqlhb 1 tab PO DAILY 06/21/19 01/27/20 Unknown NPO Date Last Intake of Fluids: 01/30/20 Time Last Intake of Fluids: 22:30 Date Last Intake of Solids: 01/30/20 Time Last Intake of Solids: 21:30 Past Medical History Medical History Acid reflux induced; Tums PRN Asthma "cold induced" - rare use of PRN inh History of TMJ disorder Past Family History Family History Grandmother (Paternal) Myocardial infarction Breast cancer Grandfather (Maternal) Coronary heart disease Father Cerebral infarction due to embolism Sarcoma of soft tissue Dyslipidemia Hypertension Mother Parkinsons disease Grandfather (Paternal) Heart disease Denies family history of Ovarian cancer Colorectal cancer Past Surgical History Surgical History History of section History of D&C History of lumpectomy of left breast History of tonsillectomy and adenoidectomy History of wisdom tooth extraction Status post fine needle aspiration left Social History Smoking Status: Never smoker Do You Dip or Chew Tobacco: No Hx Alcohol Use: No Hx Substance Use: No substance use type: does not use Physical Exam Vital Signs Last Vital Signs Temp 36.8 C 01/31/20 06:59 Pulse 84 01/31/20 06:59 Resp 18 01/31/20 06:59 BP 128/94 01/31/20 06:59 Testing Laboratory Results 01/31/20 06:02 Blood Type O Positive 01/31/20 06:02 Antibody Screen NEGATIVE 01/31/20 06:02
[2020-01-31] MEDS ORDERED: PROMETHAZINE HCL 12.5 MG in SODIUM CHLORIDE 0.9% 50 ML IV PRN (07:53)
[2020-01-31] MEDS ORDERED: NALOXONE HCL 1 MG in SODIUM CHLORIDE 0.9% 1000ML 1,000 ML IV PRN (07:53)
[2020-01-31] MEDS ORDERED: MEPERIDINE HCL 25 MG/ML CARP/VIAL IV PRN (07:53)
[2020-01-31] MEDS ORDERED: ePHEDrine sulfate 50 MG/ML AMP IV PRN (07:53)
[2020-01-31] MEDS ORDERED: diphenhydrAMINE 50 MG/ML VIAL IV PRN (07:53)
[2020-01-31] MEDS ORDERED: MoRPHine SULFATE PF 1 MG/ML 10 ML AMP/VIAL INT SPINAL ONE (07:53)
[2020-01-31] MEDS ORDERED: NALOXONE HCL 0.4 MG/1 ML VIAL/CARP IV PRN (07:53)
[2020-01-31] MEDS ORDERED: LACTATED RINGER'S 500 ML IV PRN (07:53)
[2020-01-31] MEDS ORDERED: NALOXONE HCL 0.08 MG in SYRINGE 1.8 ML IV PRN (07:53)
[2020-01-31] MEDS ORDERED: ONDANSETRON INJ 2 MG/ML 2 ML VIAL IV PRN (07:53)
[2020-01-31] MEDS ORDERED: NO NARCOTICS OR SEDATIVES SCH (08:00)
[2020-01-31] MEDS ORDERED: DC INTRASPINAL MORPHINE SCH (08:00)
[2020-01-31] MEDS ORDERED: SODIUM CHLORIDE 0.9% 1000ML 1,000 ML IV SCH (08:00)
[2020-01-31] MEDS ORDERED: SUCCINYLCHOLINE CHLORIDE 20 MG/ML 10 ML VIAL IV ONE (08:01)
[2020-01-31] MEDS ORDERED: PROPOFOL IV EMULSION 10 MG/ML 20 ML VIAL IV ONE (08:02)
[2020-01-31] MEDS ORDERED: METOCLOPRAMIDE HCL INJ 5 MG/ML 2 ML VIAL ONE (08:02)
[2020-01-31] MEDS ORDERED: ONDANSETRON INJ 2 MG/ML 2 ML VIAL ONE (08:02)
[2020-01-31] MEDS ORDERED: OXYTOCIN 10 UNITS/ML VIAL ONE (08:25)
[2020-01-31] MEDS ORDERED: PHENYLEPHRINE 100MCG/ML 5ML SYR ONE (08:25)
[2020-01-31] MEDS ORDERED: ePHEDrine sulfate 50 MG/ML SYR ONE (08:25)
--- NOTE | 2020-01-31 08:56 | Operative Report ---
PG Post Operative Report Pre & Post Diagnosis Operation Date: 01/31/20 07:30 Pre-Op Diagnosis: 1. Elderly multigravida 2. Previous c/section; desires tubal sterilization Post-Op Diagnosis: Same I identified the patient and participated in the time-out.: Yes Procedure Operation Date: 01/31/20 07:30 Actual Procedures Repeat low transverse Section in with the of a live male child at 0803. - Marichuy Dudley, Tubal sterilization with Filshie clips - Marichuy Dudley DO Surgeon Marichuy Dudley, DO Building And Grounds Supervisor Titi Camejo MD Estimated Blood Loss 600 Findings Consistent with Post-Op Diagnosis Viable male Apgars 8/9. Please see nursery records for weight. Specimens Cord blood, gas, placenta. Drains long clear yellow Anesthesia Type Spinal Complications none Disposition Accompanied Patient To Recovery: Yes Disposition: L&D Indications 39yo @ 39 4/7, history of section and desire for repeat, desire for tubal sterilization. Normal appearing tubes, ovaries. 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 Description of Procedure The patient was seen in her labor and delivery room, risks benefits and alternatives to surgery were reviewed. Informed consent obtained. Questions were answered. She was taken to the operating room, spinal anesthesia was administered. She was then prepared and draped in the usual sterile fashion in the supine position with a leftward tilt. Timeout was confirmed. A Pfannenstiel skin incision was made with a scalpel, and carried through to the underlying layer of fascia. Fascia was nicked at midline, and this incision was extended bilaterally. The superior aspect of the fascial incision was grasped with Nanci clamps x2, elevated off the underlying rectus abdominis muscles, and dissected sharply and bluntly. In similar fashion, the inferior aspect of the fascial incision was dissected. The rectus abdominis muscles were , and the peritoneum was entered sharply. This was extended bilaterally. The bladder flap was taken down carefully using Metzenbaum scissors. Using a new scalpel, a low transverse uterine incision was created. Clear amniotic fluid noted. The infant was delivered from a cephalic presentation. The head delivered, followed by shoulders and body. Spontaneous cry on the field. The cord was doubly clamped and cut, and the was handed off to the waiting miter grinder operator. A segment was retained for cord gases. Cord blood was obtained. The placenta was delivered spontaneously intact. The uterus was exteriorized, and cleared of all clots and debris. The hysterotomy incision was reapproximated using 0 Vicryl in a running locked stitch. A second layer of the same suture was used to imbricate the incision. Posterior uterus was evaluated and normal. Tubal sterilization was performed with Filshie clips. Each tube was identified, followed to the fimbria, and the isthmic region was grasped with the Filshie clip, with visualization of the posterior clip through the mesosalpinx. This was performed bilaterally. The uterus was returned to the abdomen, and gutters were cleared of clots and debris. Excellent hemostasis was observed. The fascial incision was reapproximated using 0 Vicryl in a running stitch. The subcutaneous tissue was irrigated, and reapproximated using 2-0 plain gut in a running stitch. The skin was reapproximated using 4-0 Vicryl in a running subcuticular stitch. Steri-Strips and a bandage were applied. The patient tolerated the procedure well, and will be taken to the recovery area in stable and good condition. I attest to the content of the Intraoperative Record and any orders documented therein. Any exceptions are noted below.
[2020-01-31 09:05] LABS: Base Excess Cord Arterial Bld -3.3 mEq/L (-9-1.8); CO2 Cord Arterial Blood 48 mmHg (39.1-73.5); HCO3 Cord Arterial Blood 24 mmol/L (19.7-28.5); PO2 Cord Arterial Blood 20 mmHg (4.1-31.7); pH Cord Arterial Blood 7.31 (7.1-7.38)
[2020-01-31 09:06] LABS: Oxygen Sat Cord Arterial Blood < 60.0 % (<60)
[2020-01-31 09:15] LABS: Base Excess Cord Venous Blood -3.3 mEq/L (-7.7-1.9); Cord Venous Blood HCO3 22 mmol/L (18.4-26.8); Cord Venous Blood PCO2 39 mmHg (30.4-57.2); Cord Venous Blood PO2 29 mmHg (14.1-43.3); Cord Venous Blood pH 7.36 (7.20-7.44)
[2020-01-31] MEDS: KETOROLAC 30 MG/ML VIAL IV PRN ×3 (10:39→22:16)
[2020-01-31] MEDS ORDERED: DIPHTHERIA/TETANUS/PERTUSSIS 0.5 ML SYR/VIAL IM ONE (10:40)
[2020-01-31] MEDS ORDERED: BENZOCAINE 20% AER SPR 82.5 GM CAN EXT PRN (10:40)
[2020-01-31] MEDS ORDERED: SENNA 8.6 MG TAB PO PRN (10:40)
[2020-01-31] MEDS ORDERED: SUPERCREAM 0.870% 15 GM JAR EXT PRN (10:40)
[2020-01-31] MEDS ORDERED: MAGNESIUM HYDROXIDE SUSP 30 ML UDC PO PRN (10:40)
[2020-01-31] MEDS ORDERED: HYDROCORTISONE ACETATE 25 MG SUPP PR PRN (10:40)
[2020-01-31] MEDS: OXYTOCIN 20 UNITS in LACTATED RINGER'S 1,000 ML IV SCH ×2 (11:20→19:29)
[2020-01-31] MEDS: SIMETHICONE 80 MG CHEW PO SCH ×3 (16:41→20:31)
--- NOTE | 2020-01-31 17:17 | Anesthesiology Progress Note ---
Date of Service January 31, 2020 Anesthesia Post Procedure Vital Signs Vital Signs: Temp Pulse Pulse Resp BP BP Pulse Ox 01/31/20 15:20 36.8 C 91 H 16 119/72 98 01/31/20 14:15 18 99 01/31/20 13:10 18 98 01/31/20 12:15 18 97 01/31/20 11:20 36.5 C 94 H 18 133/81 99 01/31/20 11:08 83 100 01/31/20 11:06 92 H 128/82 01/31/20 11:03 92 H 100 01/31/20 10:58 98 H 100 01/31/20 10:56 85 128/80 01/31/20 10:53 93 H 100 01/31/20 10:48 90 100 01/31/20 10:46 89 120/78 01/31/20 10:45 36.5 C 20 01/31/20 10:43 92 H 100 01/31/20 10:38 92 H 100 01/31/20 10:35 85 124/77 01/31/20 10:33 84 100 01/31/20 10:28 82 99 01/31/20 10:26 36.4 C L 82 20 117/71 01/31/20 10:23 84 100 01/31/20 10:18 84 100 01/31/20 10:16 91 H 122/76 01/31/20 10:15 18 01/31/20 10:13 84 100 01/31/20 10:08 88 100 01/31/20 10:06 82 120/67 01/31/20 10:03 95 H 100 01/31/20 09:58 100 H 99 01/31/20 09:56 84 119/66 01/31/20 09:53 81 100 01/31/20 09:48 79 100 01/31/20 09:46 78 129/73 01/31/20 09:45 18 01/31/20 09:43 81 100 01/31/20 09:38 79 100 01/31/20 09:36 85 137/70 01/31/20 09:35 18 01/31/20 09:33 80 100 01/31/20 09:28 93 H 99 01/31/20 09:25 91 H 18 138/68 01/31/20 09:23 101 H 99 01/31/20 09:18 94 H 99 01/31/20 09:16 103 H 129/68 01/31/20 09:15 18 01/31/20 09:13 100 H 99 01/31/20 09:08 101 H 98 01/31/20 09:06 100 H 129/79 01/31/20 09:05 18 01/31/20 09:03 89 97 01/31/20 08:58 89 95 01/31/20 08:56 102 H 132/83 01/31/20 08:55 18 01/31/20 08:53 102 H 98 01/31/20 08:48 101 H 98 01/31/20 08:45 36.5 C 16 01/31/20 08:43 88 123/66 98 01/31/20 06:59 36.8 C 84 18 128/94 01/31/20 05:56 36.4 C L 90 18 125/88 01/31/20 05:49 90 125/88 Pain Intensity Bilateral Abdomen: Pain Intensity: 2 Transfer of Care Handoff Completed per policy Notes Mental Status: alert / awake / arousable Patient Amnestic to Procedure: Yes Nausea / Vomiting: adequately controlled Pain: adequately controlled Airway Patency, RR, SpO2: stable & adequate BP & HR: stable & adequate Hydration State: stable & adequate Anesthetic Complications: no major complications apparent
[2020-01-31] MEDS: DOCUSATE SODIUM 100 MG CAP PO SCH (20:31)
[2020-02-01] MEDS ORDERED: diphenhydrAMINE Capsule 25 MG CAP PO PRN (01:55)
[2020-02-01] MEDS ORDERED: ONDANSETRON INJ 2 MG/ML 2 ML VIAL IV PRN (01:55)
[2020-02-01] MEDS ORDERED: diphenhydrAMINE 50 MG/ML VIAL IV PRN (01:55)
[2020-02-01] MEDS ORDERED: MEPERIDINE HCL 50 MG/ML CARP IV PRN (01:55)
[2020-02-01] MEDS ORDERED: PROMETHAZINE HCL 25 MG in SODIUM CHLORIDE 0.9% 50 ML IV PRN (01:55)
[2020-02-01] MEDS ORDERED: KETOROLAC 30 MG/ML VIAL IV PRN (01:55)
[2020-02-01] MEDS: oxyCODONE/ACETAMINOPHEN 5mg/325mg TAB PO PRN ×2 (01:59→21:08)
--- NOTE | 2020-02-01 04:55 | Obstetrical Progress Note ---
Date of Service <Ramin Monzon MD - Last Filed: 02/01/20 06:21> February 01, 2020 Assessment & Plan <Ramin Monzon MD - Last Filed: 02/01/20 06:21> (1) S/P : Jose is a 39 y/o female who is POD #1 following RCS with BTL at 39-4/7 WGA. - Feels well today. Eating well, voiding well, ambulating well. - Pain well controlled with ibuprofen and Percocet PRN - Routine post-operative care -- OOB and ambulation as tolerated - Anticipate d/c tomorrow pending peds - After discharge will have [address] Dudley. Day #:: 1 Subjective <Ramin Monzon MD - Last Filed: 02/01/20 06:21> Jose is a 39 y/o female who is POD #1 following RCS with BTL at 39-4/7 WGA. She reports feeling well overall this morning. Endorses minimal abdominal cramping with pain well managed on analgesics. Voiding without difficulty. Tolerating meals overnight and able to ambulate some. Endorses passing gas but not yet bowel movement. Has some persistent lochia with some improvement this morning. Currently breast pumping and bottle feeding. Review of Systems Denies fever, chills, sweats Denies shortness of breath, difficulty breathing, chest pain, palpitations, chest pressure. Denies breast pain. Denies dysuria. Denies headache or changes in vision. Physical Exam <Ramin Monzon MD - Last Filed: 02/01/20 06:21> General: Alert, oriented. No acute distress. Cardiac: Regular rate and rhythm, no murmurs/rubs/gallops. Respiratory: Clear to auscultation bilaterally a/p, no wheezes/rales/rhonchi. No increased work of breathing. Symmetrical chest rise. No respiratory distress. Abdomen: Soft, nontender, nondistended. Bowel sounds present. Uterus: Uterine fundus firm, palpable 1-2 cm below umbilicus. Surgical bandage still in place but area around it looks dry and intact. No erythema. Lower Extremities: No lower extremity edema or swelling. No deep calf pain. Alondra's negative bilaterally. Results & Data ([facility]) <Ramin Monzon MD - Last Filed: 02/01/20 06:21> Vital Signs (Past 12 Hours) Vital Signs Temp Pulse Resp BP Pulse Ox 02/01/20 03:00 36.7 C 90 16 114/73 02/01/20 01:15 16 94 02/01/20 00:35 16 93 01/31/20 23:15 36.8 C 103 H 16 123/78 94 01/31/20 22:15 16 95 01/31/20 21:20 16 96 01/31/20 20:10 16 96 01/31/20 19:30 36.6 C 106 H 16 124/77 96 01/31/20 17:20 18 96 <Deann Hanna MD - Last Filed: 02/01/20 06:44> Co-Signing Physician Notes I have reviewed the resident's note and examined the patient myself, and agree with the note above. Resident Activity Tracking <Ramin Monzon MD - Last Filed: 02/01/20 06:21> Resident Involvement: Resident Care Provided Care Provided: Adult Hospital Medicine and OB Delivery
[2020-02-01 06:52] LABS: Basophils # (auto) 0.02 K/uL (0-0.2); Basophils % (auto) 0.1 %; Eosinophils # (auto) 0.15 K/uL (0-0.5); Hematocrit (blood only) 34.2 % (37-47); Hemoglobin 11.4 g/dL (12.0-16.0); Immature Granulocytes # (auto) 0.03 K/uL (0.00-0.02); Immature Granulocytes % (auto) 0.2 %; Lymphocytes # (auto) 1.13 K/uL (1.2-3.4); Lymphocytes % (auto) 7.6 %; Mean Corpuscular Hemoglobin 29.5 pg (25-34); Mean Corpuscular Hgb Conc 33.3 g/dL (32-36); Mean Corpuscular Volume 88.6 fL (80-100); Mean Platelet Volume 11.8 fL (7.4-10.4); Monocytes # (auto) 0.61 K/uL (0.11-0.59); Monocytes % (auto) 4.1 %; Platelet Count 191 K/uL (130-400); RDW Coefficient of Variation 14.2 % (11.5-14.5); RDW Standard Deviation 46.2 fL (36.4-46.3); Red Blood Count 3.86 M/uL (4.2-5.4); White Blood Count 14.84 K/uL (4.8-10.8)
[2020-02-01] MEDS: IBUPROFEN 600 MG TAB PO PRN ×3 (08:08→17:01)
[2020-02-01] MEDS: FERROUS SULFATE 325 MG TAB PO SCH (08:10)
[2020-02-01] MEDS: SIMETHICONE 80 MG CHEW PO SCH ×4 (08:10→21:08)
[2020-02-01] MEDS: DOCUSATE SODIUM 100 MG CAP PO SCH ×2 (08:11→21:06)
[2020-02-01] MEDS: PRENATAL VITAMIN 1 TAB PO SCH (08:11)
[2020-02-01] MEDS ORDERED: bisacodyL 10 MG SUPP PR ONE (18:43)
[2020-02-01] MEDS: bisacodyL 10 MG SUPP PR PRN (18:47)
[2020-02-01] MEDS ORDERED: bisacodyL 5 MG TABEC PO SCH (20:00)
[2020-02-02] MEDS ORDERED: bisacodyL 10 MG SUPP PR ONE (00:48)
[2020-02-02] MEDS: bisacodyL 10 MG SUPP PR PRN (00:52)
[2020-02-02] MEDS: IBUPROFEN 600 MG TAB PO PRN ×2 (02:10→09:18)
[2020-02-02] MEDS: oxyCODONE/ACETAMINOPHEN 5mg/325mg TAB PO PRN ×2 (02:12→09:17)
--- NOTE | 2020-02-02 06:46 | Obstetrical Progress Note ---
Date of Service <Ramin Monzon MD - Last Filed: 02/02/20 06:46> February 02, 2020 Assessment & Plan <Ramin Monzon MD - Last Filed: 02/02/20 06:46> (1) S/P : Jose is a 39 y/o female who is POD #2 following RCS with BTL at 39-4/7 WGA. - Feels well today. Eating well, voiding well, ambulating well. - Pain well controlled with ibuprofen and Percocet PRN - Routine post-operative care -- OOB and ambulation as tolerated - Anticipate d/c today pending Peds - After discharge will have [address] Dudley. Subjective <Ramin Monzon MD - Last Filed: 02/02/20 06:46> Jose is a 39 y/o female who is POD #2 following RCS with BTL at 39-4/7 WGA. She reports feeling well overall this morning. Did report significant RUQ p ain yesterday evening that subsequently resolved following admission of stool softeners and a BM. Pain and cramping minimal now. Voiding without difficulty. Tolerating meals overnight and able to ambulate some. Endorses passing gas and had a bowel movement last night. Has some persistent lochia with some improvement this morning. Currently breast pumping and bottle feeding. Review of Systems Denies fever, chills, sweats Denies shortness of breath, difficulty breathing, chest pain, palpitations, chest pressure. Denies breast pain. Denies dysuria. Denies headache or changes in vision. Physical Exam <Ramin Monzon MD - Last Filed: 02/02/20 06:46> General: Alert, oriented. No acute distress. Cardiac: Regular rate and rhythm, no murmurs/rubs/gallops. Respiratory: Clear to auscultation bilaterally a/p, no wheezes/rales/rhonchi. No increased work of breathing. Symmetrical chest rise. No respiratory distress. Abdomen: Soft, nontender, nondistended. Bowel sounds present. Uterus: Uterine fundus firm, palpable 1-2 cm below umbilicus. Surgical bandage still in place but area around it looks dry and intact. No erythema. Lower Extremities: No lower extremity edema or swelling. No deep calf pain. Alondra's negative bilaterally. Results & Data ([facility]) <Ramin Monzon MD - Last Filed: 02/02/20 06:46> Vital Signs (Past 12 Hours) Vital Signs Temp Pulse Resp BP Pulse Ox 02/02/20 03:10 36.6 C 96 H 18 136/83 97 02/02/20 00:00 36.9 C 96 H 18 140/89 99 <Janine Julian MD, FACOG - Last Filed: 02/02/20 07:37> Co-Signing Physician Notes Resident Physician Supervision Note: I was present with Dr. Monzon during the history and exam. I discussed the case with the resident and agree with the findings and plan as documented in the note. Any exceptions or clarifications are listed here: doing well, ready to go home, i was called re: her ruq pain but she says once she had bm and passed more gas improved. no longer having, incision c/d/i, ff 2 down. nt. ext nt calves. will d/c home with plan for 6wk pp check. pt denies complaints or concerns. Documented By: Janine Julian MD, FACOG Resident Activity Tracking <Ramin Monzon MD - Last Filed: 02/02/20 06:46> Resident Involvement: Resident Care Provided Care Provided: Adult Hospital Medicine and OB Delivery
[2020-02-02 07:06] LABS: Hematocrit (blood only) 33.3 % (37-47)
[2020-02-02] MEDS: SIMETHICONE 80 MG CHEW PO SCH (09:17)
[2020-02-02] MEDS: DOCUSATE SODIUM 100 MG CAP PO SCH (09:17)
[2020-02-02] MEDS: FERROUS SULFATE 325 MG TAB PO SCH (09:17)
[2020-02-02] MEDS: PRENATAL VITAMIN 1 TAB PO SCH (09:17)
== END 2020-02-02 13:30 | disposition home or self-care (01) | DRG 785 ==
LOC: 4S1 05:37 → EDSTATUS 07:30 → 4S2 11:20
PROC: M.PPTLD (2020-01-31 07:30)